=== PATIENT | male | born 1995 | race Hispanic/Latino ===

== ENCOUNTER 2022-03-03 06:03 | Observation (INO) | payer OTHER, MEDICAID, SELFPAY ==
[2022-03-03] VITALS (21 sets, daily range): BP systolic 105–143; BP diastolic 56–87; PULSE 66–97; RESP 14–24; TEMP 36.3–36.7; O2SAT 94–98; BMI 27.3; BMI 27.6
--- NOTE | 2022-03-03 06:32 | DI.RAD.S_ITS ---
PROCEDURE: XR CHEST 1V INDICATIONS: chest pain TECHNIQUE: One view of the chest was acquired. COMPARISON: [facility], CT, CT ANGIO CHEST ABDOMEN PELVIS, 03/03/2022, 7:31. FINDINGS: Surgical changes and devices: None. Lungs and pleura: Lungs are clear. There may be a trace left apical pneumothorax. Mediastinum: There is moderate pneumomediastinum which tracks up the cervical soft tissues at the thoracic inlet and likely within the pericardial soft tissues. Bones and chest wall: No suspicious bony lesions. Overlying soft tissues appear unremarkable. IMPRESSION: Pneumomediastinum and pneumopericardium. Questionable trace left apical pneumothorax. These findings are concordant with the overnight interpretation. Dictated by: Merced Machado M.D. on 03/03/2022 at 8:25 Approved by: Merced Machado M.D. on 03/03/2022 at 8:27
[2022-03-03 06:42] LABS: INR 1.1 (0.9-1.3); Prothrombin Time 12.9 SECONDS (10.1-12.7)
[2022-03-03 06:44] LABS: Add Manual Diff / Slide Review NO; Basophils Absolute Auto 100 /uL (0-100); Basophils Percent Auto 0.6 % (0-2); Eosinophils Absolute Auto 0 /uL (0-450); Eosinophils Percent Auto 0.3 % (2-4); Hematocrit 43.2 % (41-53); Lymphocytes Absolute Auto 2100 /uL (1100-4500); Lymphocytes Percent Auto 14.5 % (25-40); Mean Corpuscular HGB Conc 34.7 % (30-36); Mean Corpuscular Hemoglobin 33.7 PG (26-34); Mean Corpuscular Volume 97.1 fL (80-100); Monocytes Absolute Auto 1000 /uL (0-900); Monocytes Percent Auto 6.8 % (3-14); Neutrophils Absolute Auto 11300 /uL (1500-7000); Neutrophils Percent Auto 77.8 % (50-75); PTT Partial Thromboplastin Tim 23 SECONDS (26-36); Platelet Count 291 X10^3/uL (150-400); Red Blood Cell Count 4.45 X10^6/uL (4.5-5.9); Red Cell Distribution Width 13.3 % (11.6-14.8); White Blood Cell Count 14.5 X10^3/uL (4.5-11.0)
--- NOTE | 2022-03-03 06:46 | ED_ITS ---
HPI - Chest Pain <Rosangela Carter DO - Last Filed: 03/07/22 07:24> General Chief Complaint: Chest Pain Stated Complaint: chest pain/sob/tingle in hands/light headed Time Seen by Provider: 03/03/22 06:46 Source: patient and family (partner) Mode of arrival: Ambulatory Limitations: no limitations History of Present Illness HPI narrative: This is a 26-year-old male with chronic alcohol use who presents with complaint lower substernal chest that started about 12:30 a.m. today has been persistent since then worse when he rolls over in bed. He states nothing seems to make it better or worse other than rolling over. He states it does sort of radiate up to his neck on both sides he is felt a little short of breath. Sort of tingling. He felt lightheaded which is what prompted him to come to the ER this morning. Denies fevers or chills but feels very shaky. Patient is nauseous but not vomiting. No diarrhea constipation. No urinary symptoms. Patient has not had prior symptoms in the past. Denies any daily medications. No surgeries. No daily medications. He is no drug allergies. No tobacco he drinks at least 5 alcoholic drinks daily of variety of sorts and states he drinks too much. He states occasional THC edible but not regularly no illicit. Denies family history of cardiac, embolic, vascular history. He is accompanied by his partner today. Related Data Previous Rx's Medication Instructions Recorded amoxicillin 875 mg-potassium 1 tab PO BID #6 tabs 03/04/22 clavulanate 125 mg tablet Allergies Allergy/AdvReac Type Severity Reaction Status Date / Time No Known Drug Allergies Allergy Verified 03/03/22 07:21 Review of Systems <Rosangela Carter DO - Last Filed: 03/07/22 07:24> Review of Systems ROS Unobtainable: All systems reviewed & are unremarkable except as noted in HPI and below Patient History <Rosangela Carter DO - Last Filed: 03/07/22 07:24> Social History household members: significant other Smoking Status: Former smoker alcohol intake: current Smoking Status: Former smoker alcohol intake frequency: 3 or more drinks per day Alcohol type: beer, wine and hard liquor Substance Use Type: does not use Exam <Rosangela Carter DO - Last Filed: 03/07/22 07:24> Narrative Exam Narrative: GENERAL: Alert and oriented x three, male in mild distress. Patient does look a little pale. He appears anxious. HEENT: Head normocephalic, atraumatic, EOMI, pupils reactive, face symmetric, moist mucous membranes NECK: Supple, full range of motion CARDIOVASCULAR: Regular rate and rhythm without murmurs, rubs or gallops. Patient is slightly reproducible chest pain substernally. RESPIRATORY: Breath sounds equal bilaterally, no wheezes rales or rhonchi. ABDOMEN: Soft, nontender. Normoactive bowel sounds all 4 quadrants. No guarding or rebound, rigidity, no mass : No CVA tenderness EXTREMITIES: Normal range of motion, no clubbing or edema. Neurovascularly intact. 2+ pulses bilateral upper extremities. NEUROLOGICAL: Cranial nerves II through XII grossly intact. Moving all extremit ies SKIN: Warm, dry, no petechiae, no rashes or lesions. Initial Vital Signs Initial Vital Signs: Vital Signs Temperature 97.4 F L 03/03/22 06:11 Pulse Rate 96 H 03/03/22 06:11 Respiratory Rate 18 03/03/22 06:11 Blood Pressure 120/82 03/03/22 06:11 Pulse Oximetry 98 03/03/22 06:11 Oxygen Delivery Method 03/03/22 06:11 <Milady Osman DO - Last Filed: 03/03/22 18:19> Initial Vital Signs Initial Vital Signs: Vital Signs Temperature 97.4 F L 03/03/22 06:11 Pulse Rate 96 H 03/03/22 06:11 Respiratory Rate 18 03/03/22 06:11 Blood Pressure 120/82 03/03/22 06:11 Pulse Oximetry 98 03/03/22 06:11 Oxygen Delivery Method 03/03/22 06:11 Course <Rosangela Carter DO - Last Filed: 03/07/22 07:24> Orders Ordered: Discontinued Medications Acetaminophen (Acetaminophen 325 Mg Tablet) 650 mg PO Q6H [facility] Last Admin: 03/04/22 09:55 Dose: 650 mg Documented By: Admin: 03/04/22 03:31 Dose: 650 mg Documented By: Admin: 03/03/22 20:51 Dose: 650 mg Documented By: Admin: 03/03/22 16:14 Dose: 650 mg Documented By: JONATHAN Amoxicillin/Clavulanate Potassium (Amoxicillin/Clav 875/125 Mg) 1 tab PO BID [facility] Last Admin: 03/04/22 11:56 Dose: 1 tab Documented By: MARIMAR Aspirin (Aspirin 81 Mg Chew Tab) 324 mg PO NOW ONE Stop: 03/03/22 06:32 Last Admin: 03/03/22 07:24 Dose: Not Given Documented By: ASHWIN Heparin Sodium (Porcine) (Heparin 5,000 Unit/Ml Vial) 5,000 unit SUBCUT BID [facility] Last Admin: 03/04/22 09:53 Dose: 5,000 unit Documented By: Admin: 03/03/22 20:51 Dose: 5,000 unit Documented By: JEREMIAS Hydromorphone HCl (Hydromorphone 0.5 Mg Inj) 0.5 mg IV Q4H PRN PRN Reason: Pain, Moderate (4-6) Sodium Chloride (Normal Saline 0.9%) 1,000 mls @ 1,000 mls/hr IV BOLUS ONE Stop: 03/03/22 07:45 Last Infusion: 03/03/22 10:14 Dose: 0 mls/hr Documented By: Admin: 03/03/22 07:20 Dose: 1,000 mls/hr Documented By: SAGAR Dextrose/Lactated Ringer's (Dextrose 5%-Lactated Ringers) 1,000 mls @ 100 m ls/hr IV CONT [facility] Last Infusion: 03/04/22 02:05 Dose: 0 mls/hr Documented By: Admin: 03/03/22 16:13 Dose: 100 mls/hr Documented By: LDV Piperacillin Sod/Tazobactam (Sod 3.375 gm/ Sodium Chloride) 100 mls @ 25 mls/hr IV Q8H [facility] Last Admin: 03/04/22 09:52 Dose: 25 mls/hr Documented By: Infusion: 03/04/22 06:18 Dose: 0 mls/hr Documented By: Admin: 03/04/22 01:36 Dose: 25 mls/hr Documented By: Infusion: 03/03/22 19:13 Dose: 0 mls/hr Documented By: Admin: 03/03/22 18:20 Dose: 25 mls/hr Documented By: JONATHAN Sodium Chloride (Normal Saline 0.9%) 1,000 mls @ 100 mls/hr IV CONT [facility] Last Infusion: 03/04/22 11:23 Dose: 0 mls/hr Documented By: Admin: 03/04/22 02:03 Dose: 100 mls/hr Documented By: JEREMIAS Ibuprofen (Ibuprofen 400 Mg Tablet) 400 mg PO Q4H [facility] Last Admin: 03/04/22 11:56 Dose: 400 mg Documented By: Admin: 03/04/22 07:05 Dose: 400 mg Documented By: Admin: 03/04/22 03:31 Dose: 400 mg Documented By: Admin: 03/03/22 22:49 Dose: 400 mg Documented By: Admin: 03/03/22 19:13 Dose: Not Given Documented By: Admin: 03/03/22 16:13 Dose: 400 mg Documented By: JONATHAN Lorazepam (Lorazepam 2 Mg/Ml Inj) 1 mg IV NOW ONE Stop: 03/03/22 07:48 Last Admin: 03/03/22 07:56 Dose: 1 mg Documented By: ASHWIN Magnesium Chloride (Magnesium Chloride 64 Mg Tablet) 128 mg PO Q8H [facility] Stop: 03/04/22 16:31 Last Admin: 03/04/22 09:52 Dose: 128 mg Documented By: MARIMAR Morphine Sulfate (Morphine 4 Mg/Ml Inj) 4 mg IV NOW ONE Stop: 03/03/22 06:47 Last Admin: 03/03/22 07:24 Dose: Not Given Documented By: ASHWIN Naloxone HCl (Naloxone 0.4 Mg/Ml Vial) 0.2 mg IV Q2MIN PRN PRN Reason: Opiate Reversal Ondansetron HCl (Ondansetron 4 Mg/2 Ml Inj) 4 mg IV NOW ONE Stop: 03/03/22 07:41 Last Admin: 03/03/22 07:42 Dose: 4 mg Documented By: ASHWIN Ondansetron HCl (Ondansetron 4 Mg/2 Ml Inj) 4 mg IV Q8HR PRN PRN Reason: Nausea And Vomiting Oxycodone HCl (Oxycodone Ir 10 Mg Tablet) 10 mg PO Q3H PRN PRN Reason: Pain, Severe (7-10) Pantoprazole Sodium (Pantoprazole 40 Mg Vial) 40 mg IV NOW ONE Stop: 03/03/22 07:08 Last Admin: 03/03/22 07:24 Dose: 40 mg Documented By: ASHWIN Potassium Chloride (Potassium Chloride 20 Meq Tab) 40 meq PO NOW ONE Stop: 03/04/22 08:31 Last Admin: 03/04/22 09:52 Dose: 40 meq Documented By: MARIMAR Vital Signs Vital signs: Vital Signs - 8 hr 03/03/22 10:30 03/03/22 10:30 03/03/22 11:00 Pulse Rate 75 Respiratory Rate 18 Blood Pressure 125/63 105/56 L Pulse Oximetry 94 Oxygen Delivery Method Room Air 03/03/22 11:00 03/03/22 11:30 03/03/22 11:30 Pulse Rate 72 74 Respiratory Rate 16 16 Blood Pressure 117/57 L Pulse Oximetry 95 94 Oxygen Delivery Method 03/03/22 12:00 03/03/22 12:00 03/03/22 12:30 Pulse Rate 66 Respiratory Rate 15 Blood Pressure 115/62 113/65 Pulse Oximetry 94 Oxygen Delivery Method 03/03/22 12:30 03/03/22 13:00 03/03/22 13:00 Pulse Rate 80 68 Respiratory Rate 16 19 Blood Pressure 117/66 Pulse Oximetry 96 97 Oxygen Delivery Method 03/03/22 13:30 03/03/22 14:00 03/03/22 14:30 Pulse Rate 80 70 73 Respiratory Rate 14 17 16 Blood Pressure Pulse Oximetry 96 96 96 Oxygen Delivery Method <Milady Osman, - Last Filed: 03/03/22 18:19> Orders Ordered: Discontinued Medications Acetaminophen (Acetaminophen 325 Mg Tablet) 650 mg PO Q6H [facility] Last Admin: 03/04/22 09:55 Dose: 650 mg Documented By: Admin: 03/04/22 03:31 Dose: 650 mg Documented By: Admin: 03/03/22 20:51 Dose: 650 mg Documented By: Admin: 03/03/22 16:14 Dose: 650 mg Documented By: LDV Amoxicillin/Clavulanate Potassium (Amoxicillin/Clav 875/125 Mg) 1 tab PO BID [facility] Last Admin: 03/04/22 11:56 Dose: 1 tab Documented By: MARIMAR Aspirin (Aspirin 81 Mg Chew Tab) 324 mg PO NOW ONE Stop: 03/03/22 06:32 Last Admin: 03/03/22 07:24 Dose: Not Given Documented By: ASHWIN Heparin Sodium (Porcine) (Heparin 5,000 Unit/Ml Vial) 5,000 unit SUBCUT BID [facility] Last Admin: 03/04/22 09:53 Dose: 5,000 unit Documented By: Admin: 03/03/22 20:51 Dose: 5,000 unit Documented By: AMH Hydromorphone HCl (Hydromorphone 0.5 Mg Inj) 0.5 mg IV Q4H PRN PRN Reason: Pain, Moderate (4-6) Sodium Chloride (Normal Saline 0.9%) 1,000 mls @ 1,000 mls/hr IV BOLUS ONE Stop: 03/03/22 07:45 Last Infusion: 03/03/22 10:14 Dose: 0 mls/hr Documented By: Admin: 03/03/22 07:20 Dose: 1,000 mls/hr Documented By: GC Dextrose/Lactated Ringer's (Dextrose 5%-Lactated Ringers) 1,000 mls @ 100 mls/hr IV CONT [facility] Last Infusion: 03/04/22 02:05 Dose: 0 mls/hr Documented By: Admin: 03/03/22 16:13 Dose: 100 mls/hr Documented By: LDV Piperacillin Sod/Tazobactam (Sod 3.375 gm/ Sodium Chloride) 100 mls @ 25 mls/hr IV Q8H [facility] Last Admin: 03/04/22 09:52 Dose: 25 mls/hr Documented By: Infusion: 03/04/22 06:18 Dose: 0 mls/hr Documented By: Admin: 03/04/22 01:36 Dose: 25 mls/hr Documented By: Infusion: 03/03/22 19:13 Dose: 0 mls/hr Documented By: Admin: 03/03/22 18:20 Dose: 25 mls/hr Documented By: LDV Sodium Chloride (Normal Saline 0.9%) 1,000 mls @ 100 mls/hr IV CONT [facility] Last Infusion: 03/04/22 11:23 Dose: 0 mls/hr Documented By: Admin: 03/04/22 02:03 Dose: 100 mls/hr Documented By: JEREMIAS Ibuprofen (Ibuprofen 400 Mg Tablet) 400 mg PO Q4H [facility] Last Admin: 03/04/22 11:56 Dose: 400 mg Documented By: Admin: 03/04/22 07:05 Dose: 400 mg Documented By: Admin: 03/04/22 03:31 Dose: 400 mg Documented By: Admin: 03/03/22 22:49 Dose: 400 mg Documented By: Admin: 03/03/22 19:13 Dose: Not Given Documented By: Admin: 03/03/22 16:13 Dose: 400 mg Documented By: JONATHAN Lorazepam (Lorazepam 2 Mg/Ml Inj) 1 mg IV NOW ONE Stop: 03/03/22 07:48 Last Admin: 03/03/22 07:56 Dose: 1 mg Documented By: ASHWIN Magnesium Chloride (Magnesium Chloride 64 Mg Tablet) 128 mg PO Q8H [facility] Stop: 03/04/22 16:31 Last Admin: 03/04/22 09:52 Dose: 128 mg Documented By: MARIMAR Morphine Sulfate (Morphine 4 Mg/Ml Inj) 4 mg IV NOW ONE Stop: 03/03/22 06:47 Last Admin: 03/03/22 07:24 Dose: Not Given Documented By: ASHWIN Naloxone HCl (Naloxone 0.4 Mg/Ml Vial) 0.2 mg IV Q2MIN PRN PRN Reason: Opiate Reversal Ondansetron HCl (Ondansetron 4 Mg/2 Ml Inj) 4 mg IV NOW ONE Stop: 03/03/22 07:41 Last Admin: 03/03/22 07:42 Dose: 4 mg Documented By: ASHWIN Ondansetron HCl (Ondansetron 4 Mg/2 Ml Inj) 4 mg IV Q8HR PRN PRN Reason: Nausea And Vomiting Oxycodone HCl (Oxycodone Ir 10 Mg Tablet) 10 mg PO Q3H PRN PRN Reason: Pain, Severe (7-10) Pantoprazole Sodium (Pantoprazole 40 Mg Vial) 40 mg IV NOW ONE Stop: 03/03/22 07:08 Last Admin: 03/03/22 07:24 Dose: 40 mg Documented By: ASHWIN Potassium Chloride (Potassium Chloride 20 Meq Tab) 40 meq PO NOW ONE Stop: 03/04/22 08:31 Last Admin: 03/04/22 09:52 Dose: 40 meq Documented By: MARIMAR Vital Signs Vital signs: Vital Signs - 8 hr 03/03/22 10:30 03/03/22 10:30 03/03/22 11:00 Pulse Rate 75 Respiratory Rate 18 Blood Pressure 125/63 105/56 L Pulse Oximetry 94 Oxygen Delivery Method Room Air 03/03/22 11:00 03/03/22 11:30 03/03/22 11:30 Pulse Rate 72 74 Respiratory Rate 16 16 Blood Pressure 117/57 L Pulse Oximetry 95 94 Oxygen Delivery Method 03/03/22 12:00 03/03/22 12:00 03/03/22 12:30 Pulse Rate 66 Respiratory Rate 15 Blood Pressure 115/62 113/65 Pulse Oximetry 94 Oxygen Delivery Method 03/03/22 12:30 03/03/22 13:00 03/03/22 13:00 Pulse Rate 80 68 Respiratory Rate 16 19 Blood Pressure 117/66 Pulse Oximetry 96 97 Oxygen Delivery Method 03/03/22 13:30 03/03/22 14:00 03/03/22 14:30 Pulse Rate 80 70 73 Respiratory Rate 14 17 16 Blood Pressure Pulse Oximetry 96 96 96 Oxygen Delivery Method MDM - Chest Pain <Rosangela Carter, DO - Last Filed: 03/07/22 07:24> Lab Data Result diagrams: 03/03/22 23:11 03/04/22 04:41 Labs: Lab Results 03/03/22 03/03/22 03/03/22 Range/Units 06:25 06:25 06:25 WBC 14.5 H (4.5-11.0) X10^3/uL RBC 4.45 L (4.5-5.9) X10^6/uL Hgb 15.0 (13.5-17.5) g/dL Hct 43.2 (41-53) % MCV 97.1 (80-100) fL MCH 33.7 (26-34) PG MCHC 34.7 (30-36) % RDW 13.3 (11.6-14.8) % Plt Count 291 (150-400) X10^3/uL Neut % (Auto) 77.8 H (50-75) % Lymph % (Auto) 14.5 L (25-40) % [place] % (Auto) 6.8 (3-14) % Eos % (Auto) 0.3 L (2-4) % Baso % (Auto) 0.6 (0-2) % Neut # (Auto) 35578 H (7885-4056) /uL Lymph # (Auto) 2100 (6755-4603) /uL [place] # (Auto) 1000 H (0-900) /uL Eos # (Auto) 0 (0-450) /uL Baso # (Auto) 100 (0-100) /uL PT 12.9 H (10.1-12.7) SECONDS INR 1.1 (0.9-1.3) APTT 23 L (26-36) SECONDS D-Dimer (<500) ng/ml Sodium 137 (137-145) mmol/L Potassium 3.7 (3.4-5.1) mmol/L Chloride 100 (98-107) mmol/L Carbon Dioxide 26 (22-32) mmol/L BUN 12 (9-20) mg/dL Creatinine 0.90 (0.66-1.25) mg/dL Estimated GFR > 60 (>60) mL/min BUN/Creatinine Ratio 13.3 (6-22) Glucose 125 H (70-100) mg/dL Calcium 9.0 (8.4-10.2) mg/dL Magnesium 1.2 L (1.6-2.3) mg/dL Total Bilirubin 0.6 (0.2-1.3) mg/dL AST 40 (17-59) IU/L ALT 31 (<50) IU/L Alkaline Phosphatase 88 (38-126) U/L Total Creatine Kinase 112 (55-170) U/L CK-MB (CK-2) 0.50 (<2.37) ng/mL CK-MB (CK-2) Rel Index 0.4 L (1.5-5.0) % Troponin I < 0.012 (0.01-0.034) ng/mL Total Protein 8.3 H (6.3-8.2) g/dL Albumin 4.8 (3.5-5.0) g/dL Globulin 3.5 (1.7-4.1) g/dL Albumin/Globulin Ratio 1.4 (1.0-2.8) Lipase 51 (23-300) U/L Ethyl Alcohol ( - 10) mg/dL SARS-CoV-2 (PCR) (Negative) Influenza A (RT-PCR) (NEGATIVE) Influenza B (RT-PCR) (NEGATIVE) RSV (PCR) (Negative) 03/03/22 03/03/22 03/03/22 Range/Units 06:25 06:25 07:15 WBC (4.5-11.0) X10^3/uL RBC (4.5-5.9) X10^6/uL Hgb (13.5-17.5) g/dL Hct (41-53) % MCV (80-100) fL MCH (26-34) PG MCHC (30-36) % RDW (11.6-14.8) % Plt Count (150-400) X10^3/uL Neut % (Auto) (50-75) % Lymph % (Auto) (25-40) % [place] % (Auto) (3-14) % Eos % (Auto) (2-4) % Baso % (Auto) (0-2) % Neut # (Auto) (1466-4300) /uL Lymph # (Auto) (6414-3081) /uL [place] # (Auto) (0-900) /uL Eos # (Auto) (0-450) /uL Baso # (Auto) (0-100) /uL PT (10.1-12.7) SECONDS INR (0.9-1.3) APTT (26-36) SECONDS D-Dimer 521 H (<500) ng/ml Sodium (137-145) mmol/L Potassium (3.4-5.1) mmol/L Chloride (98-107) mmol/L Carbon Dioxide (22-32) mmol/L BUN (9-20) mg/dL Creatinine (0.66-1.25) mg/dL Estimated GFR (>60) mL/min BUN/Creatinine Ratio (6-22) Glucose (70-100) mg/dL Calcium (8.4-10.2) mg/dL Magnesium (1.6-2.3) mg/dL Total Bilirubin (0.2-1.3) mg/dL AST (17-59) IU/L ALT (<50) IU/L Alkaline Phosphatase (38-126) U/L Total Creatine Kinase (55-170) U/L CK-MB (CK-2) (<2.37) ng/mL CK-MB (CK-2) Rel Index (1.5-5.0) % Troponin I (0.01-0.034) ng/mL Total Protein (6.3-8.2) g/dL Albumin (3.5-5.0) g/dL Globulin (1.7-4.1) g/dL Albumin/Globulin Ratio (1.0-2.8) Lipase (23-300) U/L Ethyl Alcohol < 10 ( - 10) mg/dL SARS-CoV-2 (PCR) Negative (Negative) Influenza A (RT-PCR) Flu a negative (NEGATIVE) Influenza B (RT-PCR) Flu b negative (NEGATIVE) RSV (PCR) Negative (Negative) 03/03/22 Range/Units 09:00 WBC (4.5-11.0) X10^3/uL RBC (4.5-5.9) X10^6/uL Hgb (13.5-17.5) g/dL Hct (41-53) % MCV (80-100) fL MCH (26-34) PG MCHC (30-36) % RDW (11.6-14.8) % Plt Count (150-400) X10^3/uL Neut % (Auto) (50-75) % Lymph % (Auto) (25-40) % [place] % (Auto) (3-14) % Eos % (Auto) (2-4) % Baso % (Auto) (0-2) % Neut # (Auto) (1451-4937) /uL Lymph # (Auto) (8922-3141) /uL [place] # (Auto) (0-900) /uL Eos # (Auto) (0-450) /uL Baso # (Auto) (0-100) /uL PT (10.1-12.7) SECONDS INR (0.9-1.3) APTT (26-36) SECONDS D-Dimer (<500) ng/ml Sodium (137-145) mmol/L Potassium (3.4-5.1) mmol/L Chloride (98-107) mmol/L Carbon Dioxide (22-32) mmol/L BUN (9-20) mg/dL Creatinine (0.66-1.25) mg/dL Estimated GFR (>60) mL/min BUN/Creatinine Ratio (6-22) Glucose (70-100) mg/dL Calcium (8.4-10.2) mg/dL Magnesium (1.6-2.3) mg/dL Total Bilirubin (0.2-1.3) mg/dL AST (17-59) IU/L ALT (<50) IU/L Alkaline Phosphatase (38-126) U/L Total Creatine Kinase (55-170) U/L CK-MB (CK-2) (<2.37) ng/mL CK-MB (CK-2) Rel Index (1.5-5.0) % Troponin I < 0.012 (0.01-0.034) ng/mL Total Protein (6.3-8.2) g/dL Albumin (3.5-5.0) g/dL Globulin (1.7-4.1) g/dL Albumin/Globulin Ratio (1.0-2.8) Lipase (23-300) U/L Ethyl Alcohol ( - 10) mg/dL SARS-CoV-2 (PCR) (Negative) Influenza A (RT-PCR) (NEGATIVE) Influenza B (RT-PCR) (NEGATIVE) RSV (PCR) (Negative) Urine Dip Bedside Urine Glucose Negative Bedside Urine Bilirubin - Negative Bedside Urine Ketone - Negative Urine Specific [place] 1.010 Bedside Urine Occult Blood - Negative Bedside Urine pH 7.5 Bedside Urine Protein - Negative Bedside Urine Urobilinogen - Negative Bedside Urine Nitrite - Negative ECG Data Attestation: I personally reviewed and interpreted this ECG as follows: Prior ECG tracings: not available for review Interpretation: NSR, rate of 86, pr 174, qrs 90, qtc 478. MDM Narrative Medical decision making narrative: Patient signed out to Dr. Osman while awaiting workup for cardiac, abdominal including pancreatic, , NS, morphine ordered. Patient deferred morphine. Patient signed out to me by Dr. Carter I have seen evaluated patient myself. He is having some discomfort. Concern for pneumomediastinum confirmed by CT angio. His pain is controlled with morphine and Ativan. After further discussion with patient and partner he does remember hiking yesterday and falling flat on his chest. He is hemodynamically stable. 12:38 Dr. Sewell, CVT surgery at [facility] has reviewed CT scan updated patient's symptoms test results states that he recommends an esophagram if esophagram is normal than ops for 24 hours if it is abnormal then patient will need to be transferred but unfortunately they do not have any beds available. Patient's esophagram is negative he continues to be hemodynamically stable. Discussion with Dr. Caceres [facility] she agrees <Milady Osman, DO - Last Filed: 03/03/22 18:19> Lab Data Labs: Lab Results 03/03/22 03/03/22 03/03/22 Range/Units 06:25 06:25 06:25 WBC 14.5 H (4.5-11.0) X10^3/uL RBC 4.45 L (4.5-5.9) X10^6/uL Hgb 15.0 (13.5-17.5) g/dL Hct 43.2 (41-53) % MCV 97.1 (80-100) fL MCH 33.7 (26-34) PG MCHC 34.7 (30-36) % RDW 13.3 (11.6-14.8) % Plt Count 291 (150-400) X10^3/uL Neut % (Auto) 77.8 H (50-75) % Lymph % (Auto) 14.5 L (25-40) % [place] % (Auto) 6.8 (3-14) % Eos % (Auto) 0.3 L (2-4) % Baso % (Auto) 0.6 (0-2) % Neut # (Auto) 28196 H (7782-5357) /uL Lymph # (Auto) 2100 (6437-6468) /uL [place] # (Auto) 1000 H (0-900) /uL Eos # (Auto) 0 (0-450) /uL Baso # (Auto) 100 (0-100) /uL PT 12.9 H (10.1-12.7) SECONDS INR 1.1 (0.9-1.3) APTT 23 L (26-36) SECONDS D-Dimer (<500) ng/ml Sodium 137 (137-145) mmol/L Potassium 3.7 (3.4-5.1) mmol/L Chloride 100 (98-107) mmol/L Carbon Dioxide 26 (22-32) mmol/L BUN 12 (9-20) mg/dL Creatinine 0.90 (0.66-1.25) mg/dL Estimated GFR > 60 (>60) mL/min BUN/Creatinine Ratio 13.3 (6-22) Glucose 125 H (70-100) mg/dL Calcium 9.0 (8.4-10.2) mg/dL Magnesium 1.2 L (1.6-2.3) mg/dL Total Bilirubin 0.6 (0.2-1.3) mg/dL AST 40 (17-59) IU/L ALT 31 (<50) IU/L Alkaline Phosphatase 88 (38-126) U/L Total Creatine Kinase 112 (55-170) U/L CK-MB (CK-2) 0.50 (<2.37) ng/mL CK-MB (CK-2) Rel Index 0.4 L (1.5-5.0) % Troponin I < 0.012 (0.01-0.034) ng/mL Total Protein 8.3 H (6.3-8.2) g/dL Albumin 4.8 (3.5-5.0) g/dL Globulin 3.5 (1.7-4.1) g/dL Albumin/Globulin Ratio 1.4 (1.0-2.8) Lipase 51 (23-300) U/L Ethyl Alcohol ( - 10) mg/dL SARS-CoV-2 (PCR) (Negative) Influenza A (RT-PCR) (NEGATIVE) Influenza B (RT-PCR) (NEGATIVE) RSV (PCR) (Negative) 03/03/22 03/03/22 03/03/22 Range/Units 06:25 06:25 07:15 WBC (4.5-11.0) X10^3/uL RBC (4.5-5.9) X10^6/uL Hgb (13.5-17.5) g/dL Hct (41-53) % MCV (80-100) fL MCH (26-34) PG MCHC (30-36) % RDW (11.6-14.8) % Plt Count (150-400) X10^3/uL Neut % (Auto) (50-75) % Lymph % (Auto) (25-40) % [place] % (Auto) (3-14) % Eos % (Auto) (2-4) % Baso % (Auto) (0-2) % Neut # (Auto) (9906-0987) /uL Lymph # (Auto) (5950-4855) /uL [place] # (Auto) (0-900) /uL Eos # (Auto) (0-450) /uL Baso # (Auto) (0-100) /uL PT (10.1-12.7) SECONDS INR (0.9-1.3) APTT (26-36) SECONDS D-Dimer 521 H (<500) ng/ml Sodium (137-145) mmol/L Potassium (3.4-5.1) mmol/L Chloride (98-107) mmol/L Carbon Dioxide (22-32) mmol/L BUN (9-20) mg/dL Creatinine (0.66-1.25) mg/dL Estimated GFR (>60) mL/min BUN/Creatinine Ratio (6-22) Glucose (70-100) mg/dL Calcium (8.4-10.2) mg/dL Magnesium (1.6-2.3) mg/dL Total Bilirubin (0.2-1.3) mg/dL AST (17-59) IU/L ALT (<50) IU/L Alkaline Phosphatase (38-126) U/L Total Creatine Kinase (55-170) U/L CK-MB (CK-2) (<2.37) ng/mL CK-MB (CK-2) Rel Index (1.5-5.0) % Troponin I (0.01-0.034) ng/mL Total Protein (6.3-8.2) g/dL Albumin (3.5-5.0) g/dL Globulin (1.7-4.1) g/dL Albumin/Globulin Ratio (1.0-2.8) Lipase (23-300) U/L Ethyl Alcohol < 10 ( - 10) mg/dL SARS-CoV-2 (PCR) Negative (Negative) Influenza A (RT-PCR) Flu a negative (NEGATIVE) Influenza B (RT-PCR) Flu b negative (NEGATIVE) RSV (PCR) Negative (Negative) 03/03/22 Range/Units 09:00 WBC (4.5-11.0) X10^3/uL RBC (4.5-5.9) X10^6/uL Hgb (13.5-17.5) g/dL Hct (41-53) % MCV (80-100) fL MCH (26-34) PG MCHC (30-36) % RDW (11.6-14.8) % Plt Count (150-400) X10^3/uL Neut % (Auto) (50-75) % Lymph % (Auto) (25-40) % [place] % (Auto) (3-14) % Eos % (Auto) (2-4) % Baso % (Auto) (0-2) % Neut # (Auto) (5711-2105) /uL Lymph # (Auto) (0231-9955) /uL [place] # (Auto) (0-900) /uL Eos # (Auto) (0-450) /uL Baso # (Auto) (0-100) /uL PT (10.1-12.7) SECONDS INR (0.9-1.3) APTT (26-36) SECONDS D-Dimer (<500) ng/ml Sodium (137-145) mmol/L Potassium (3.4-5.1) mmol/L Chloride (98-107) mmol/L Carbon Dioxide (22-32) mmol/L BUN (9-20) mg/dL Creatinine (0.66-1.25) mg/dL Estimated GFR (>60) mL/min BUN/Creatinine Ratio (6-22) Glucose (70-100) mg/dL Calcium (8.4-10.2) mg/dL Magnesium (1.6-2.3) mg/dL Total Bilirubin (0.2-1.3) mg/dL AST (17-59) IU/L ALT (<50) IU/L Alkaline Phosphatase (38-126) U/L Total Creatine Kinase (55-170) U/L CK-MB (CK-2) (<2.37) ng/mL CK-MB (CK-2) Rel Index (1.5-5.0) % Troponin I < 0.012 (0.01-0.034) ng/mL Total Protein (6.3-8.2) g/dL Albumin (3.5-5.0) g/dL Globulin (1.7-4.1) g/dL Albumin/Globulin Ratio (1.0-2.8) Lipase (23-300) U/L Ethyl Alcohol ( - 10) mg/dL SARS-CoV-2 (PCR) (Negative) Influenza A (RT-PCR) (NEGATIVE) Influenza B (RT-PCR) (NEGATIVE) RSV (PCR) (Negative) Urine Dip Bedside Urine Glucose Negative Bedside Urine Bilirubin - Negative Bedside Urine Ketone - Negative Urine Specific [place] 1.010 Bedside Urine Occult Blood - Negative Bedside Urine pH 7.5 Bedside Urine Protein - Negative Bedside Urine Urobilinogen - Negative Bedside Urine Nitrite - Negative Imaging Data CT scan - chest: Radiologist's Impression: CT Scan Report Signed Patient: Dm Gleason MR#: [id number] : 1995 Acct:[id number] Age/Sex: 26 / M Date of Service: 03/03/22 Loc: ED Accession Number: [id number] ?? Procedure: CT angio chest abdomen pelvis Ordering Provider: Rosangela Carter D.O. PROCEDURE:? CT ANGIO CHEST ABDOMEN PELVIS ? INDICATIONS:? chest pain, epigastric pain ? TECHNIQUE:? Precontrast 5 mm thick sections acquired from the lung apices to the iliac crests.? After the administration of intravenous contrast, 2.5 mm thick sections again acquired from the lung apices to the iliac crests.? Maximum intensity projection (MIP) oblique sagittal and coronal reformats were then acquired.? For radiation dose reduction, the following was used:? automated exposure control.? ? COMPARISON:? None. ? FINDINGS:? Image quality:? Excellent.? ? AORTA and its attachments:? Normal caliber ascending and descending thoracic aorta and abdominal aorta no dissection, rupture, or aneurysm.? Classic three-vessel arch anatomy.? Great vessel origins are normal in caliber.? SMA, celiac, GRACE, and bilateral renal arteries are patent.? Iliacs and common femorals are patent. ? CHEST:? Lungs and pleura:? No acute airspace opacities.? No pleural effusions or pneumothorax.? Central and peripheral airways are patent and normal in caliber.? ? Mediastinum:? Extensive mediastinal free air.? This includes a large amount of air present in the pericardial space.? Heart size is normal.? No pericardial effusion.? No mediastinal or hilar adenopathy by size criteria.? Central pulmonary arteries are normal in size.? Esophagus is normal in caliber.? No hiatal hernias.? ? Bones and chest wall:? No axillary adenopathy by size criteria.? Thyroid gland is unremarkable as visualized .? No suspicious bony lesions.? No vertebral body compression fractures.? ? ? ABDOMEN:? Vasculature:? Celiac trunk and mesenteric arteries are patent.? Renal arteries are also patent.? ? Solid organs:? Liver is normal in size and enhancement.? Gallbladder is unremarkable .? Biliary system is non dilated.? Pancreas enhances normally.? Spleen is normal in size and enhancement.? No adrenal nodules.? Both kidneys are normal in size and enhanceme nt, without hydronephrosis.? ? Peritoneum and bowel:? No free fluid or air.? Bowel loops are normal in caliber and wall thickness.? ? Nodes and vessels:? No retroperitoneal or mesenteric adenopathy by size criteria.? Inferior vena cava is normal in morphology.? ? Miscellaneous:? No ventral hernias.? ? ? PELVIS:? Genitourinary:? Bladder wall thickness is normal.? ? Miscellaneous:? No inguinal hernias or adenopathy.? No ventral hernias.? ? Bones:? No suspicious bony lesions.? No vertebral body compression fractures.? ? ? IMPRESSION:? ? 1. Unremarkable aorta and its attachments. ? 2. Large pneumopericardium ? 3. Extensive mediastinal free air. ? 4. No pneumothorax.? No free intraperitoneal air.? ? Comment: Findings were discussed with Dr. Osman on? 03/03/2022 at 0825 hours ? Dictated by: Emmett Mcguire M.D. on 03/03/2022 at 8:17 ? ? Approved by: Emmett Mcguire M.D. on 03/03/2022 at 8:26 ? esophagram: Radiologist's Impression: Signed Patient: Dm Gleason MR#: [id number] : 1995 Acct:[id number] Age/Sex: 26 / M Date of Service: 03/03/22 Loc: ED Accession Number: [id number] ?? Procedure: [place] Esophogram w/o air Ordering Provider: Milady Osman D.O. PROCEDURE:? ESOPHOGRAM W/O AIR ? INDICATIONS:? Pneumomediastinum ? COMPARISON:? [facility], CR, XR CHEST 1V, 03/03/2022, 6:38.? [facility], CT, CT ANGIO CHEST ABDOMEN PELVIS, 03/03/2022, 7:31. ? FINDINGS:? ? Function:? There is normal esophageal peristalsis.? No spontaneous gastroesophageal reflux.? No extravasation of ingested contrast material is seen. ? Morphology:? Single contrast views show no esophageal strictures, extrinsic mass effects, or diverticula.? Limited images of the stomach demonstrate normal appearance.? ? IMPRESSION:? No extravasation of ingested contrast material from the esophagus. ? ? ? Approved by: Ramesh Brand M.D. on 03/03/2022 at 14:09? MDM Narrative Medical decision making narrative: Patient signed out to Dr. Osman while awaiting workup for cardiac, abdominal including pancreatic, , NS, morphine ordered. Patient deferred morphine. Patient signed out to me by Dr. Carter I have seen evaluated patient myself. He is having some discomfort. Concern for pneumomediastinum confirmed by CT angio. His pain is controlled with morphine and Ativan. After further discussion with patient and partner he does remember hiking yesterday and falling flat on his chest. He is hemodynamically stable. 12:38 Dr. Sewell, CVT surgery at [facility] has reviewed CT scan updated patient's symptoms test results states that he recommends an esophagram if esophagram is normal than ops for 24 hours if it is abnormal then patient will need to be transferred but unfortunately they do not have any beds available. Patient's esophagram is negative he continues to be hemodynamically stable. Discussion with Dr. Caceres in regards [facility] point she agrees Discharge Plan Departure Patient Disposition: Admitted as Observation Clinical Impression: Pneumomediastinum Admit Date/Time: 03/03/22 14:48 Admit Provider: Shannon Caceres
[2022-03-03 06:47] LABS: Alanine Aminotransferase 31 IU/L (<50); Albumin 4.8 g/dL (3.5-5.0); Albumin Globulin Ratio 1.4 (1.0-2.8); Alkaline Phosphatase 88 U/L (38-126); Aspartate Aminotransferase 40 IU/L (17-59); BUN Creatinine Ratio 13.3 (6-22); Bilirubin Total 0.6 mg/dL (0.2-1.3); Blood Urea Nitrogen 12 mg/dL (9-20); Carbon Dioxide 26 mmol/L (22-32); Chloride 100 mmol/L (98-107); Creatine Kinase 112 U/L (55-170); Estimated Glomerular Filt Rate > 60 mL/min (>60); Globulin 3.5 g/dL (1.7-4.1); Glucose 125 mg/dL (70-100); HEMOLYSIS < 15 (0-50); Lipase 51 U/L (23-300); Magnesium 1.2 mg/dL (1.6-2.3); Potassium 3.7 mmol/L (3.4-5.1); Sodium 137 mmol/L (137-145); Total Protein 8.3 g/dL (6.3-8.2)
[2022-03-03 06:58] LABS: Troponin I < 0.012 ng/mL (0.01-0.034)
[2022-03-03 07:00] LABS: Ethanol (ETOH) < 10 mg/dL
[2022-03-03 07:01] LABS: CKMB % Relative Index 0.4 % (1.5-5.0)
[2022-03-03 07:10] LABS: D Dimer 521 ng/ml (<500)
--- NOTE | 2022-03-03 07:17 | DI.CT.S_ITS ---
PROCEDURE: CT ANGIO CHEST ABDOMEN PELVIS INDICATIONS: chest pain, epigastric pain TECHNIQUE: Precontrast 5 mm thick sections acquired from the lung apices to the iliac crests. After the administration of intravenous contrast, 2.5 mm thick sections again acquired from the lung apices to the iliac crests. Maximum intensity projection (MIP) oblique sagittal and coronal reformats were then acquired. For radiation dose reduction, the following was used: automated exposure control. COMPARISON: None. FINDINGS: Image quality: Excellent. AORTA and its attachments: Normal caliber ascending and descending thoracic aorta and abdominal aorta no dissection, rupture, or aneurysm. Classic three-vessel arch anatomy. Great vessel origins are normal in caliber. SMA, celiac, GRACE, and bilateral renal arteries are patent. Iliacs and common femorals are patent. CHEST: Lungs and pleura: No acute airspace opacities. No pleural effusions or pneumothorax. Central and peripheral airways are patent and normal in caliber. Mediastinum: Extensive mediastinal free air. This includes a large amount of air present in the pericardial space. Heart size is normal. No pericardial effusion. No mediastinal or hilar adenopathy by size criteria. Central pulmonary arteries are normal in size. Esophagus is normal in caliber. No hiatal hernias. Bones and chest wall: No axillary adenopathy by size criteria. Thyroid gland is unremarkable as visualized . No suspicious bony lesions. No vertebral body compression fractures. ABDOMEN: Vasculature: Celiac trunk and mesenteric arteries are patent. Renal arteries are also patent. Solid organs: Liver is normal in size and enhancement. Gallbladder is unremarkable . Biliary system is non dilated. Pancreas enhances normally. Spleen is normal in size and enhancement. No adrenal nodules. Both kidneys are normal in size and enhancement, without hydronephrosis. Peritoneum and bowel: No free fluid or air. Bowel loops are normal in caliber and wall thickness. Nodes and vessels: No retroperitoneal or mesenteric adenopathy by size criteria. Inferior vena cava is normal in morphology. Miscellaneous: No ventral hernias. PELVIS: Genitourinary: Bladder wall thickness is normal. Miscellaneous: No inguinal hernias or adenopathy. No ventral hernias. Bones: No suspicious bony lesions. No vertebral body compression fractures. IMPRESSION: 1. Unremarkable aorta and its attachments. 2. Large pneumopericardium 3. Extensive mediastinal free air. 4. No pneumothorax. No free intraperitoneal air. Comment: Findings were discussed with Dr. Osman on 03/03/2022 at 0825 hours Dictated by: Emmett Mcguire M.D. on 03/03/2022 at 8:17 Approved by: Emmett Mcguire M.D. on 03/03/2022 at 8:26
[2022-03-03] MEDS: SODIUM CHLORIDE 0.9% 1,000 ML 1000 ML IV (07:20)
[2022-03-03] MEDS: PANTOPRAZOLE 40 MG VIAL IV (07:24)
[2022-03-03] MEDS: ONDANSETRON 4 MG/2 ML INJ IV (07:42)
[2022-03-03] MEDS: LORazepam 2 MG/ML INJ 1 MG IV (07:56)
[2022-03-03 08:23] LABS: COVID-19 CEPHEID 4-PLEX PCR Negative (Negative); Influenza A - CEPHEID Flu A NEGATIVE (NEGATIVE); Influenza B - CEPHEID Flu B NEGATIVE (NEGATIVE); Respiratory Syncytial Virus Negative (Negative)
[2022-03-03 09:37] LABS: Troponin I < 0.012 ng/mL (0.01-0.034)
--- NOTE | 2022-03-03 10:16 | PC.NURSE ---
Muffled heart sounds noted on left side of chest, more clear heart sounds noted near apex
--- NOTE | 2022-03-03 12:41 | DI.RAD.S_ITS ---
PROCEDURE: ESOPHOGRAM W/O AIR INDICATIONS: Pneumomediastinum COMPARISON: [facility], CR, XR CHEST 1V, 03/03/2022, 6:38. [facility], CT, CT ANGIO CHEST ABDOMEN PELVIS, 03/03/2022, 7:31. FINDINGS: Function: There is normal esophageal peristalsis. No spontaneous gastroesophageal reflux. No extravasation of ingested contrast material is seen. Morphology: Single contrast views show no esophageal strictures, extrinsic mass effects, or diverticula. Limited images of the stomach demonstrate normal appearance. IMPRESSION: No extravasation of ingested contrast material from the esophagus. Approved by: Ramesh Brand M.D. on 03/03/2022 at 14:09
[2022-03-03] MEDS: IBUPROFEN 400 MG TABLET PO ×2 (16:13→22:49)
[2022-03-03] MEDS: DEXTROSE 5%-LACTATED RINGERS 1,000 ML 100 ML IV (16:13)
[2022-03-03] MEDS: ACETAMINOPHEN 325 MG TABLET 650 MG PO ×2 (16:14→20:51)
[2022-03-03 18:19] LABS: Add Manual Diff / Slide Review NO; Basophils Absolute Auto 100 /uL (0-100); Basophils Percent Auto 0.6 % (0-2); Eosinophils Absolute Auto 100 /uL (0-450); Eosinophils Percent Auto 0.6 % (2-4); Hematocrit 41.6 % (41-53); Hemoglobin 14.5 g/dL (13.5-17.5); Lymphocytes Absolute Auto 2200 /uL (1100-4500); Lymphocytes Percent Auto 23.5 % (25-40); Mean Corpuscular HGB Conc 34.9 % (30-36); Mean Corpuscular Hemoglobin 33.9 PG (26-34); Mean Corpuscular Volume 97.3 fL (80-100); Monocytes Absolute Auto 900 /uL (0-900); Monocytes Percent Auto 9.6 % (3-14); Neutrophils Absolute Auto 6200 /uL (1500-7000); Neutrophils Percent Auto 65.7 % (50-75); Platelet Count 283 X10^3/uL (150-400); Red Blood Cell Count 4.28 X10^6/uL (4.5-5.9); Red Cell Distribution Width 13.2 % (11.6-14.8); White Blood Cell Count 9.4 X10^3/uL (4.5-11.0)
[2022-03-03] MEDS: PIPERACILLIN/TAZO 3.375 GM in SODIUM CHLORIDE 0.9% 100 ML IV (18:20)
[2022-03-03] MEDS: HEPARIN 5,000 UNIT/ML VIAL 5000 UNIT SUBCUT (20:51)
--- NOTE | 2022-03-03 21:13 | PC.NURSE ---
Patient is alert and oriented. Breath sounds CTA with RA sat of 97% but endorses increased chest discomfort with deep breathing; on continuous oximetry HRR but sounds muffled; telemetry reading was SB w/rate of 61. No lightheadedness or jugular distention noted. Denies nausea. BT present and abdomen is soft; reports he has had liquid stools earlier today. Denies dysuria, frequency or urgency with urination. Is independent with mobility and steady on feet. Does have continued chest achiness but at shift change was 4/10 and when 2100 Tylenol given stated he thought the pain was actually improved and rated severity as 3/10. Declined to have SCD's applied as states he is getting up in room independently; is receiving BID SQ heparin. Fall risk score is moderate but safe for independent ambulation in room.
[2022-03-03 23:34] LABS: Add Manual Diff / Slide Review NO; Basophils Absolute Auto 200 /uL (0-100); Basophils Percent Auto 2.3 % (0-2); Eosinophils Absolute Auto 100 /uL (0-450); Eosinophils Percent Auto 1.5 % (2-4); Hematocrit 40.9 % (41-53); Lymphocytes Absolute Auto 1500 /uL (1100-4500); Lymphocytes Percent Auto 20.4 % (25-40); Mean Corpuscular HGB Conc 34.1 % (30-36); Mean Corpuscular Hemoglobin 33.5 PG (26-34); Mean Corpuscular Volume 98.1 fL (80-100); Monocytes Absolute Auto 600 /uL (0-900); Monocytes Percent Auto 8.6 % (3-14); Neutrophils Absolute Auto 4900 /uL (1500-7000); Neutrophils Percent Auto 67.2 % (50-75); Platelet Count 281 X10^3/uL (150-400); Red Blood Cell Count 4.17 X10^6/uL (4.5-5.9); Red Cell Distribution Width 13.3 % (11.6-14.8); White Blood Cell Count 7.3 X10^3/uL (4.5-11.0)
[2022-03-03 23:36] LABS: Alanine Aminotransferase 28 IU/L (<50); Albumin 4.3 g/dL (3.5-5.0); Albumin Globulin Ratio 1.3 (1.0-2.8); Alkaline Phosphatase 71 U/L (38-126); Aspartate Aminotransferase 31 IU/L (17-59); BUN Creatinine Ratio 12.6 (6-22); Bilirubin Total 1.1 mg/dL (0.2-1.3); Blood Urea Nitrogen 11 mg/dL (9-20); Calcium 9.1 mg/dL (8.4-10.2); Carbon Dioxide 28 mmol/L (22-32); Chloride 103 mmol/L (98-107); Estimated Glomerular Filt Rate > 60 mL/min (>60); Globulin 3.2 g/dL (1.7-4.1); Glucose 103 mg/dL (70-100); HEMOLYSIS < 15 (0-50); Potassium 3.3 mmol/L (3.4-5.1); Sodium 139 mmol/L (137-145); Total Protein 7.5 g/dL (6.3-8.2)
[2022-03-04] VITALS: BP 137/82; PULSE 69; RESP 18; TEMP 36.4; O2SAT 98
[2022-03-04] MEDS: PIPERACILLIN/TAZO 3.375 GM in SODIUM CHLORIDE 0.9% 100 ML IV ×2 (01:36→09:52)
[2022-03-04] MEDS: SODIUM CHLORIDE 0.9% 1,000 ML 100 ML IV (02:03)
[2022-03-04 03:30] VITALS: BP 140/77; PULSE 52; RESP 14; TEMP 36.3; O2SAT 99
[2022-03-04] MEDS: ACETAMINOPHEN 325 MG TABLET 650 MG PO ×2 (03:31→09:55)
[2022-03-04] MEDS: IBUPROFEN 400 MG TABLET PO ×3 (03:31→11:56)
[2022-03-04 05:40] LABS: BUN Creatinine Ratio 13.5 (6-22); Blood Urea Nitrogen 12 mg/dL (9-20); Calcium 9.1 mg/dL (8.4-10.2); Carbon Dioxide 26 mmol/L (22-32); Chloride 104 mmol/L (98-107); Estimated Glomerular Filt Rate > 60 mL/min (>60); Glucose 95 mg/dL (70-100); HEMOLYSIS < 15 (0-50); Potassium 3.4 mmol/L (3.4-5.1); Sodium 140 mmol/L (137-145)
[2022-03-04] MEDS: POTASSIUM CHLORIDE 20 MEQ TAB 40 MEQ PO (09:52)
[2022-03-04] MEDS: MAGNESIUM CHLORIDE 64 MG TABLET 128 MG PO (09:52)
[2022-03-04] MEDS: HEPARIN 5,000 UNIT/ML VIAL 5000 UNIT SUBCUT (09:53)
--- NOTE | 2022-03-04 10:05 | DI.RAD.S_ITS ---
PROCEDURE: XR CHEST 1V INDICATIONS: pneumomediastinum TECHNIQUE: One view of the chest was acquired. COMPARISON: [facility], RF, ESOPHOGRAM W/O AIR, 03/03/2022, 13:13. [facility], CT, CT ANGIO CHEST ABDOMEN PELVIS, 03/03/2022, 7:31. [facility], CR, XR CHEST 1V, 03/03/2022, 6:38. FINDINGS: Surgical changes and devices: None. Lungs and pleura: Lungs are clear. No pleural effusions or pneumothorax. Mediastinum: Persistent pneumomediastinum, unchanged. Heart size is normal. Bones and chest wall: No suspicious bony lesions. Overlying soft tissues appear unremarkable. IMPRESSION: Persistent pneumomediastinum, unchanged from the last exam. Dictated by: Francisco Cornejo M.D. on 03/04/2022 at 10:04 Approved by: Francisco Cornejo M.D. on 03/04/2022 at 10:16
[2022-03-04 11:12] VITALS: BP 130/65; PULSE 56; RESP 17; TEMP 36.6; O2SAT 99
[2022-03-04] MEDS: AMOXICILLIN/CLAV 875/125 MG 1 TAB PO (11:56)
--- NOTE | 2022-03-04 12:41 | PM.HP.1 ---
History of Present Illness History of Present Illness Date Patient Seen: 03/04/22 Time Patient Seen: 12:41 Chief complaint: chest pain/sob/tingle in hands/light headed Narrative: Spontaneous pneumomediastinum. No prior episodes. still has discomfort with deep breathes. CXR stable w/o PTX. Patient History Family & Social History Social History: household members significant other Prior Living Arrangements Apartment/Condo Safety & Behavioral: Feels Safe in Current Yes Environment Been Physically Hurt or No Threatened By a Person Tobacco & Substance use: Tobacco type cannabis/marijuana Smoking Status Former smoker alcohol intake current alcohol intake frequency 3 or more drinks per day Substance Use Type marijuana Meds Home Medications and Allergies Home Medications Medication Instructions Recorded Confirmed Type No Known Home Medications 03/03/22 03/03/22 History Allergies Allergy/AdvReac Type Severity Reaction Status Date / Time No Known Drug Allergies Allergy Verified 03/03/22 07:21 Review of Systems Review of Systems ROS: Yes All systems reviewed with the patient and are negative except as otherwise documented Exam Vital Signs (past 8 hours): - 03/04/22 11:12 Temperature 98 F Pulse Rate 56 L Respiratory Rate 17 Blood Pressure 130/65 Pulse Oximetry 99 Oxygen Flow Rate 0 Oxygen Delivery Method Room Air Oxygen Flow Rate 0 Const General: cooperative and healthy appearing Nutritional Appearance: average body habitus HENKS Head: normocephalic and atraumatic Eyes General: appearance normal, both eyes and all related structures Neck Neck: normal visual inspection and trachea midline Chest Chest: normal inspection of the chest Resp Effort & Inspection: normal respiratory effort and able to speak in complete sentences Cardio Rate: regular rate Rhythm: regular rhythm GI Inspection: normal to inspection Palpation: soft Skin General: no rashes or lesions noted and turgor normal Neuro General: patient alert, patient awake and patient oriented x3 Cognition: normal cognition Extrem General: normal to inspection and full ROM Psych Appearance: grossly normal Affect: normal affect Judgment: judgment good Objective Labs Result Diagrams: 03/03/22 23:11 03/04/22 04:41 Labs: Laboratory Results - last 24 hr 03/03/22 03/03/22 03/03/22 18:02 23:11 23:11 WBC 9.4 7.3 RBC 4.28 L 4.17 L Hgb 14.5 14.0 Hct 41.6 40.9 L MCV 97.3 98.1 MCH 33.9 33.5 MCHC 34.9 34.1 RDW 13.2 13.3 Plt Count 283 281 Neut % (Auto) 65.7 67.2 Lymph % (Auto) 23.5 L 20.4 L [place] % (Auto) 9.6 8.6 Eos % (Auto) 0.6 L 1.5 L Baso % (Auto) 0.6 2.3 H Neut # (Auto) 6200 4900 Lymph # (Auto) 2200 1500 [place] # (Auto) 900 600 Eos # (Auto) 100 100 Baso # (Auto) 100 200 H Sodium 139 Potassium 3.3 L Chloride 103 Carbon Dioxide 28 BUN 11 Creatinine 0.87 Estimated GFR > 60 BUN/Creatinine Ratio 12.6 Glucose 103 H Calcium 9.1 Total Bilirubin 1.1 AST 31 ALT 28 Alkaline Phosphatase 71 Total Protein 7.5 Albumin 4.3 Globulin 3.2 Albumin/Globulin Ratio 1.3 03/04/22 04:41 WBC RBC Hgb Hct MCV MCH MCHC RDW Plt Count Neut % (Auto) Lymph % (Auto) [place] % (Auto) Eos % (Auto) Baso % (Auto) Neut # (Auto) Lymph # (Auto) [place] # (Auto) Eos # (Auto) Baso # (Auto) Sodium 140 Potassium 3.4 Chloride 104 Carbon Dioxide 26 BUN 12 Creatinine 0.89 Estimated GFR > 60 BUN/Creatinine Ratio 13.5 Glucose 95 Calcium 9.1 Total Bilirubin AST ALT Alkaline Phosphatase Total Protein Albumin Globulin Albumin/Globulin Ratio Assessment & Plan Assessment & Plan narrative: Spontaneous pneumomediastinum. Plan: Discharge with 3 days Augmentin, no restrictions of activity or diet COVID-19 COVID-19 status: Negative Time Spent With Patient Time with patient: 30 to 49 minutes with 50% spent counseling/coordinating care Critical Care time: I spent a total of [] minutes of critical care time on this patient's care today; this time is exclusive of procedural time. Quality VTE Deep Vein Thrombosis/Pulmonary Embolism Present on Admission: No
--- NOTE | 2022-03-04 15:26 | PC.NURSE ---
Discharge order received and Iv removed. Discharge instructions and home care handout reviewed with patient, he states understanding and has no further questions or concerns at this time. Patient is visiting from [place], and headed to see family in [place] for holidays. Instructed patient to follow up with his primary care doctor as needed and to have his records requested from here to send to his doctor. Patient escorted out by TRADESHOW WORKER with all his belongings to discharge with his significant other.
--- NOTE | 2022-03-05 01:44 | P.DS_ITS ---
History of Present Illness History of Present Illness Date Patient Seen: 03/04/22 Time Patient Seen: 12:00 Chief complaint: chest pain/sob/tingle in hands/light headed Narrative: Spontaneous pneumomediastinum. No prior episodes. still has discomfort with deep breathes. CXR stable w/o PTX. Discharge Providers Provider Date of admission: 03/03/22 14:48 Discharge Date: 03/04/22 Primary care physician: Doctor Bernard MD Consults: 03/03/22 15:55 Consult to Stage Set Up Worker Routine Comment: Discharge provider: Shannon Caceres MD Summary Hospital Course Discharge Diagnosis: spontaneous mediastinum Hospital Course: Uncomplicated stay. Labs, repeat CXR and observation showed improvement in symptoms and WBC. Stable CXR Status at Discharge Cognitive/behavioral status at discharge: at baseline, oriented Functional status at discharge: independent ambulation Overall status at discharge: patient is progressing back to baseline Time Spent with Patient Time spent: Greater than 30 minutes Exam Vital Signs (past 8 hours): Oxygen Delivery Method Room Air Oxygen Flow Rate 0 Narrative Exam Narrative: unchanged from H and P done around same time Objective Labs Result Diagrams: 03/03/22 23:11 03/04/22 04:41 Labs: Laboratory Results - last 24 hr 03/04/22 04:41 Sodium 140 Potassium 3.4 Chloride 104 Carbon Dioxide 26 BUN 12 Creatinine 0.89 Estimated GFR > 60 BUN/Creatinine Ratio 13.5 Glucose 95 Calcium 9.1 PFSH Social History household members: significant other Smoking Status: Former smoker alcohol intake: current Discharge Assessment & Plan Assessment and Plan Assessment: Spontaneous pneumomediastinum with out etiology. Plan of Treatment: Discharged after 24hrs observation and testing. Home on 3 days of po Augmentin. No follow up or restrictions. Discharge Plan Discharge Plan Patient Disposition: Home Discharge orders & Medications Prescriptions: New amoxicillin-pot clavulanate 875-125 mg Tablet 1 tab PO BID Qty: 6 0RF Follow up/Referrals: Doctor Wagner MD [Primary Care Provider] - Diet/Activity/Treatments Diet: Diet as Tolerated Discharge Data Primary Care Provider: Doctor Bernard Attending Provider: Shannon Caceres VTE Deep Vein Thrombosis/Pulmonary Embolism Present on Admission: No
== END 2022-03-04 15:15 | disposition home or self-care (01) ==
LOC: ED 14:47 → AC 14:49
PROVIDERS: Emergency Medicine; Admitting Provider Surgery; Emergency Provider Emergency Medicine; Referring Provider Emergency Medicine; Visit Provider Surgery
DX: J98.59 Other diseases of mediastinum, not elsewhere classified (principal); Z20.822 Contact with and (suspected) exposure to COVID-19
CPT/HCPCS: 0241U; 36415; 71045; 71275; 74174; 74220; 80048; 80053; 80320; 81003; 82550; 82553; 83690; 83735; 84484; 85025; 85379; 85610; 85730; 93005; 96361; 96365; 96366; 96372; 96375; 99217; 99218; 99284; G0378; C9113; J1644; J2060; J2405; J2543; J7121; Q9967